=== PATIENT | male | born 1970 | race Caucasian/White ===

== ENCOUNTER → 2019-12-22 | Outpatient (CLI) | payer BC ==
--- NOTE | 2019-12-22 17:03 | KCIC ---
MR of the right knee HISTORY: Medial right knee pain. Positive Neda's test. Pain for 6 months. TECHNIQUE: Routine multiplanar sequences are obtained. FINDINGS: Mild signal identified within the medial meniscus, with mild deformity at its peripheral and inferior edge. Best seen on coronal images. There is also mild displacement of tissue towards the recess. Findings are compatible with a flap morphology tear. No evidence of lateral meniscal tear. Anterior and posterior cruciate ligaments are intact. Medial collateral ligament intact. Iliotibial band unremarkable. Fibular collateral ligament, biceps femoris tendon and popliteus tendon are intact. Extensor mechanism intact. Quadriceps tendon intact. No acute retinacular tear. Trace joint effusion. Mild chondromalacia the patella with a small central partial-thickness fissure. Moderate to severe medial compartment chondromalacia. Mild subchondral cystic changes at the medial tibial plateau. Lateral compartment articular cartilage is intact. No evidence of acute fracture. No aggressive bone destruction. No significant Gramajo's cyst. IMPRESSION: 1. Medial meniscal tear, with a flap morphology. 2. DJD. Electronically signed by: Bahman Valverde MD (12/22/2019 5:00 PM) [facility]
== END | disposition home or self-care (01) ==
LOC: KCIC MRI 15:46
PROVIDERS: ATTEND Orthopaedic Surgery
DX: S83.241A Other tear of medial meniscus, current injury, right knee, initial encounter (principal); M17.11 Unilateral primary osteoarthritis, right knee; M22.41 Chondromalacia patellae, right knee; X58.XXXA Exposure to other specified factors, initial encounter; Y93.89 Activity, other specified; Y92.89 Other specified places as the place of occurrence of the external cause; Y99.8 Other external cause status
CPT/HCPCS: 73721

== ENCOUNTER 2020-01-05 05:55 | Day surgery (SDC) | payer BC ==
[~2020-01-05] VITALS: Ht 175.3 cm; Wt 114.3 kg
[2020-01-05] MEDS ORDERED: BUPIVACAINE-EPI 0.5%-1:200000 MPF 30 ML VIAL. ONE (06:56)
[2020-01-05] MEDS ORDERED: MORPHINE SULFATE 2 MG/ML VIAL. IV PRN (07:00)
[2020-01-05] MEDS ORDERED: LIDOCAINE 1% PF 2 ML VIAL. ID PRN (07:00)
[2020-01-05] MEDS ORDERED: PROCHLORPERAZINE 10 MG/2 ML VIAL. IV PRN (07:00)
[2020-01-05] MEDS ORDERED: ONDANSETRON PF 4 MG/2 ML VIAL. IV PRN (07:00)
[2020-01-05] MEDS ORDERED: IV RINGERS,LACTATED 1000ML 1,000 ML IV SCH (07:00)
[2020-01-05] MEDS ORDERED: fentaNYL PF VIAL 100 MCG/2 ML VIAL IV PRN ×2 (07:00)
[2020-01-05] MEDS ORDERED: HYDROmorphone 2 MG/ML VIAL IV PRN (07:00)
[2020-01-05] MEDS ORDERED: LIDOCAINE 2% PF 5 ML VIAL. ONE (07:18)
[2020-01-05] MEDS ORDERED: fentaNYL PF VIAL 100 MCG/2 ML VIAL ONE (07:18)
[2020-01-05] MEDS ORDERED: PROPOFOL 20 ML IV ONE (07:18)
[2020-01-05] MEDS ORDERED: OXYC1TAB15 PO (07:28)
--- NOTE | 2020-01-05 07:29 | DISCH ---
DISCHARGE INSTRUCTIONS Condition on Discharge Condition on Discharge: Stable Activity After Discharge Activity Instructions for Disc: Progressive ambulation (low returned to regular activity as symptomatically tolerated) Weight Bearing Status after Di: As tolerated Diet after Discharge Diet after Discharge: Regular Wound Incision Care Wound/Incision Care: Ice to area for comfort, Keep wound elevated (when not up and around), Change dressing (remove dressing in 2 days may then shower no soaking until sutures removed) Contacting the DRRoel after DC Call your doctor for: Concerns you may have Follow-Up Follow up with: Dr. Batista 1 week CORINE BATISTA MD Jan 05, 2020 07:29
[2020-01-05] MEDS ORDERED: SEVOFLURANE 31 TO 60 MINUTES. IH ONE (07:43)
[2020-01-05] MEDS ORDERED: DEXAMETHASONE SOD PHOS 20 MG/5 ML VIAL. ONE (07:43)
[2020-01-05] MEDS ORDERED: ONDANSETRON PF 4 MG/2 ML VIAL. ONE (07:43)
--- NOTE | 2020-01-05 08:36 | PDOC4 ---
Operative Note Operative Note Date of surgery: 01/05/2020 Preoperative diagnosis: Right knee medial meniscus tear Postoperative diagnosis: Right knee medial and lateral meniscus tear Operative procedure: Right knee arthroscopy partial medial and lateral meniscectomy Surgeon: Lynne Anesthesia: Gen. 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 that is sharp in nature particularly posterior medial joint line. MRI confirmed the clinical suspicion o f a meniscus tear I gone over with him structure and function of the meniscus the blood supply and lack of healing capability where he has the tear and the possibility of nonoperative versus operative treatment in the rationale for removal of the damaged portion of the meniscus preserving the intact supportive cushioning fibers. All his questions were answered along with covering the possibility of infection nerve or blood vessel damage continued pain the fact that I cannot undo any degenerative changes present medical or other anesthetic complications among others all his questions were answered and he wishes to proceed with surgical evaluation and treatment. Operative text: Patient was identified procedure verified patient placed in the supine position on the operating table. After adequate amounts of general anesthesia were administered the right lower extremity was prepped and draped in standard sterile fashion with a thigh tourniquet. After timeout was performed patient procedure identified and verified the right lower extremity was exsanguinate by Esmarch bandage tourniquet inflated to 350 mmHg a lateral portal was established and a medial portal established using spinal needle localization and the knee joint was systematically examined no loose bodies were noted in the gutters or suprapatellar pouch patellofemoral tracking was noted to be excellent and he had good preservation of the cartilage surfaces at the patellofemoral joint and in the medial compartment. He did have a displaceable tear of the body extending into the posterior horn of the medial meniscus which was trimmed back to stable tissue using arthroscopic punch and shaver. Radiusing the meniscus was carried out appropriately to eliminate any further stress risers. He had no significant chondromalacia in the medial compartment. ACL was probed and found to be intact lateral compartment was noted to have some grade 2-3 chondromalacia on the distal femur weightbearing surface that did not require debridement he did however have a free edge tear of the body of the lateral meniscus which was trimmed back to stable tissue using arthroscopic shaver. The knee was then toured to ensure no loose fragments remained was drained of arthroscopic fluid fat pad and portal areas were infused with have percent plain Marcaine portals closed with nylon suture sterile dressings were applied toes were noted to be warm and pink following deflation of tourniquet patient was returned to recovery room in stable condition having tolerated procedure well CORINE AGUILAR MD Jan 05, 2020 08:36
[2020-01-05] MEDS ORDERED: oxyCODONE/APAP 5/325 1 TAB TABLET PO ONE (09:15)
[2020-01-05 09:18] VITALS: BP 138/95
== END 2020-01-05 10:00 | disposition home or self-care (01) ==
LOC: SURG 05:55
PROVIDERS: ATTEND Orthopaedic Surgery
DX: S83.281A Other tear of lateral meniscus, current injury, right knee, initial encounter (principal); S83.241A Other tear of medial meniscus, current injury, right knee, initial encounter; M94.261 Chondromalacia, right knee; E66.9 Obesity, unspecified; Z68.36 Body mass index [BMI] 36.0-36.9, adult; Z72.89 Other problems related to lifestyle; X58.XXXA Exposure to other specified factors, initial encounter; Y93.89 Activity, other specified; Y92.89 Other specified places as the place of occurrence of the external cause; Y99.8 Other external cause status
CPT/HCPCS: 29880; A7015; C1782; J1100; J2001; J2405; J2704; J3010; J3490

== ENCOUNTER 2020-05-07 01:49 | Emergency (ER) | payer BC ==
[~2020-05-07] VITALS: Ht 175.3 cm; Wt 100.9 kg
[~2020-05-07 01:49] MED LIST: OXYC1TAB15 PO
[2020-05-07 02:15] VITALS: BP 142/92
[2020-05-07] MEDS ORDERED: oxyCODONE/APAP 5/325 1 TAB TABLET ONE (02:34)
[2020-05-07] MEDS ORDERED: oxyCODONE/APAP 5/325 1 TAB TABLET PO ONE (03:00)
[2020-05-07] MEDS ORDERED: OXYC1TAB15 PO (03:05)
--- NOTE | 2020-05-07 03:05 | PHYS DOC ---
Past Medical History Past Medical History: No Pertinent History Additional Past Surgical Histo: Right knee (meniscus repair) Smoking Status: Never Smoker Drug Use: None General Adult EDM: Chief Complaint: KNEE INJURY HPI: HPI: Patient is a 49 year old male presents of right knee pain and inability to bear weight after patient was walking and felt like his knee "buckled and popped ". Patient reports history of prior meniscal repair with Dr. Batista in December 2019. Patient reports concerned that he has "wrecked his knee ". Denies head trauma or neck pain. Denies fever or chills. Review of Systems: Review of Systems: Constitutional: Denies fever or chills Musculoskeletal: Reports right knee pain Integument: Denies rash or skin lesions Neurologic: Denies headache, focal weakness or sensory changes Complete systems were reviewed and found to be within normal limits, except as documented in this note. Current Medications: Current Medications Medications (Trade) Dose Ordered Sig/Julia Start Time Stop Time Status Last Admin Dose Admin Oxycodone/ Acetaminophen (Percocet 5/325) 1 tab STK-MED ONCE 05/07/20 02:34 05/07/20 02:35 DC Allergies: Allergies: Allergies Coded Allergies Type Severity Reaction Last Updated Verified No Known Drug Allergies 12/31/19 No Physical Exam: PE: Constitutional: Well developed, well nourished, no acute distress, non-toxic appearance HENT: Normocephalic, atraumatic Eyes: Conjunctiva normal, no discharge Neck: Normal range of motion, no tenderness, supple Cardiovascular: Right DP and PT +2, CR < 2 sec Lungs & Thorax: No respiratory distress, equal chest rise and fall Skin: Warm, dry, no erythema, no rash Extremities: Right knee tenderness on ROM, anterior drawer negative, no edema Neurologic: Alert and oriented X 3, no focal deficits noted Psychologic: Affect normal, judgment normal Current Patient Data: Vital Signs: Vital Signs Date Time Temp Pulse Resp B/P (MAP) Pulse Ox O2 Delivery O2 Flow Rate FiO2 05/07/20 02:36 18 97 Room Air 05/07/20 02:15 98.0 89 142/93 (109) 98.0 EKG: EKG: [] Radiology/Procedures: Radiology/Procedures: PROCEDURE: KNEE RIGHT 3V EXAM: Right knee, 3 views HISTORY: Right knee pain. COMPARISON: None. FINDINGS: No fractures are identified. There are small osteophytes along the medial compartment. Alignment is normal. There is no joint effusion. IMPRESSION: 1. Medial compartmental osteoarthritis. Electronically signed by: James Beaver MD (05/07/2020 3:41 AM) [facility] Course & Med Decision Making: Course & Med Decision Making Pertinent Imaging studies reviewed. (See chart for details) Patient with past surgical history of right meniscal repair from Dr. Batista presents with report of right knee pain and sensation that his knee "bent backwards and popped". Joint stable on physical exam. Ice applied. Pain addressed. X-ray obtained without acute fracture or dislocation. Tiburcio bandage applied. Patient reports he has crutches at home. Patient stable for discharge with outpatient follow-up with PCP/orthopedics. Discussed findings and plan with patient and family, who acknowledge understanding and agreement. Dragon Disclaimer: Dragon Disclaimer: This electronic medical record was generated, in whole or in part, using a voice recognition dictation system. Splinting Splinting : Location: Right knee Pre-Made Type: TIBURCIO bandage Pre-Proc Neuro Vasc Exam: normal Post-Proc Neuro Vasc Exam: normal, unchanged from pre-exam Departure Departure Impression: Primary Impression: Knee sprain Qualified Codes: S83.91XA - Sprain of unspecified site of right knee, initial encounter Disposition: HOME, SELF-CARE Condition: STABLE Referrals: GISEL CAMARGO MD (PCP) CORINE BATISTA MD Patient Instructions: Crutch Use, [id number], Knee Sprain, [id number], Knee Wraps (Elastic Bandage) and RICE Additional Instructions: May also use over the counter NSAIDS (Advil or Aleve) as needed for pain in addition to prescribed pain medications. Scripts Oxycodone/Apap 5-325 (PERCOCET 5-325 MG TABLET ) 1 Each Tablet 0.5-1 TAB PO PRN Q6HRS PRN for PAIN, #10 TAB 0 Refills Prov: MARK ORTEGA DO 05/07/20 Justicifation of Admission Dx: Justifications for Admission: Justification of Admission Dx: N/A MARK ORTEGA DO May 07, 2020 03:05
--- NOTE | 2020-05-07 03:44 | RAD ---
EXAM: Right knee, 3 views HISTORY: Right knee pain. COMPARISON: None. FINDINGS: No fractures are identified. There are small osteophytes along the medial compartment. Alignment is normal. There is no joint effusion. IMPRESSION: 1. Medial compartmental osteoarthritis. Electronically signed by: James Beaver MD (05/07/2020 3:41 AM) [facility]
== END 2020-05-07 03:30 | disposition home or self-care (01) ==
LOC: ER 01:49
DX: S83.8X1A Sprain of other specified parts of right knee, initial encounter (principal); Z98.890 Other specified postprocedural states; X58.XXXA Exposure to other specified factors, initial encounter; Y93.01 Activity, walking, marching and hiking; Y92.89 Other specified places as the place of occurrence of the external cause; Y99.8 Other external cause status
CPT/HCPCS: 73562; 99283